=== PATIENT | female | born 1950 | race Caucasian/White ===

== ENCOUNTER 2021-12-19 09:41 | Emergency (ER) | payer MEDICARE, MEDICAID, SELFPAY ==
[2021-12-19 09:42] VITALS: BP 206/77; PULSE 99; RESP 14; TEMP 36.2; O2SAT 100; BMI 36.6
--- NOTE | 2021-12-19 10:24 | VDLE_ITS ---
Reason For Study: Pain RIGHT GSV is normal. CFV is compressible, spontaneous, phasic, competent and demonstrates normal augmentation. FV is compressible, spontaneous, phasic, competent and demonstrates normal augmentation. POP V is compressible, spontaneous, phasic, competent and demonstrates normal augmentation. T/P Trunk is compressible. PTV is compressible. RT PerV is compressible. Procedure This is a venous duplex using B-mode, color flow and spectral Doppler. Exam performed portable in ED. A preliminary report was called and/or faxed to [facility]. VL/Venous Duplex US, Unilateral Interpretation Summary There is no evidence of right lower extremity deep vein thrombosis. Right great saphenous vein appears patent and compressible segmentally. Ordering Physician: Bret Granados Performed By: Karyn Sandy RVT
--- NOTE | 2021-12-19 10:24 | RAD_ITS ---
STUDY: X-RAY - RIGHT ANKLE REASON FOR EXAM: Female, 71 years old. Pain TECHNIQUE: 4 view(s) of the ankle. COMPARISON: None. FINDINGS: Normal visualized distal tibia and fibula. Normal medial and lateral malleoli. Normal tibiotalar articulation and ankle mortise. Calcaneal spurs. The visualized subtalar, talonavicular, calcaneocuboid and tarsal articulations are normal. Diffuse soft tissue swelling. RAD/Ankle min 3 Views IMPRESSION: Diffuse soft tissue swelling. Electronically Signed: Raphael Nieves MD at 10:55 EST ,
--- NOTE | 2021-12-19 10:25 | EX.ED.DYSGE1 ---
HPI History of Present Illness Chief Complaint: Lower Extremity Injury Narrative Narrative: Patient presents with right ankle and calf pain for the past 3 days, she recently drove from [place]. She has no chest pain or shortness of breath. She does not have any redness of the extremity, no history of trauma, fall or any kind of injury. No prior DVT history PFSH PFSH Home Medications hydrocodone-acetaminophen 1 tab PO QHS PRN 3 Days #7 tab 12/19/21 [Rx Last Taken Unknown] Allergy/AdvReac Type Severity Reaction Status Date / Time No Known Allergies Allergy Verified 12/19/21 09:43 ROS ROS ED ROS Narrative Past medical history: Reviewed Medications: Reviewed Social history: Noncontributory Review of systems: All systems negative except as indicated General: No fever Eyes: No visual changes ENT: No upper airway congestion, normal voice Neck: No neck pain Cardiovascular: No chest pain Respiratory: No shortness of breath or cough Gastrointestinal: No abdominal pain, nausea vomiting or diarrhea Genitourinary: No dysuria Musculoskeletal: Right ankle pain Skin: No rash Neurological: No memory loss, confusion or any focal weakness Psych: No recent behavioral changes Hematologic: No easy bleeding or easy bruising EXAM Physical Exam Narrative Exam Narrative: Physical exam General: Well nourished, Well developed, No Acute Distress Head: Normocephalic, Atraumatic Eyes: Conjunctiva not pale ENT: Moist mucous membranes Neck: Supple, Nontender, No lymphadenopathy Cardiovascular: Regular rate, Regular rhythm Respiratory: No distress, CTA bilaterally Abdomen: Soft, Nontender, Nondistended Back: Nontender, Normal Inspection. Negative for: CVA tenderness Extremities: Right ankle has some tenderness both on the medial and lateral side there is no laxity or signs of trauma. Very slight edema is present but this is very similar to the other side. No calf pain that I can appreciate. Negative Homans Skin: Normal color, No rash Neurological: Alert, Normal Strength, Normal Sensation Psychological: Normal affect Const Vital Signs: 12/19/21 09:42 Temperature 97.1 F L Temperature Source Temporal Pulse Rate 99 Respiratory Rate 14 Blood Pressure 206/77 H Blood Pressure Mean 120 Pulse Ox 100 Oxygen Delivery Method Room Air MDM MDM MDM Narrative Medical decision making narrative: Patient has normal x-ray and DVT study. She appears well I will discharge her with reassurance. Radiography Diagnostic Testing: Clinical Impression(s) from Imaging Studies Ankle X-Ray 12/19/21 10:24 IMPRESSION: Diffuse soft tissue swelling. Electronically Signed: Raphael Nieves MD at 10:55 EST , Discharge Plan Triage Chief Complaint: Lower Extremity Injury ED Provider: Bret Granados Dx/Rx/DC Orders Clinical Impression: Acute ankle pain Instructions: ED Arthralgia Prescriptions: New hydrocodone-acetaminophen 5-325 mg tablet 1 tab PO QHS PRN (Reason: pain) 3 Days Qty: 7 RF: 0 Referrals: MARV FERNANDEZ [Other] Disposition Disposition: Home, Self Care
[2021-12-19 11:56] VITALS: BP 156/74; PULSE 84; RESP 16; O2SAT 99
== END 2021-12-19 11:58 | disposition home or self-care (01) ==
PROVIDERS: Emergency Provider Emergency Medicine; Visit Provider Emergency Medicine
DX: M25.579 Pain in unspecified ankle and joints of unspecified foot (principal); M79.661 Pain in right lower leg
CPT/HCPCS: 73610; 93971; 99283; A4216